=== PATIENT | female | born 1975 | race Caucasian/White ===

== ENCOUNTER 2023-05-11 02:30 | Inpatient (IN) | payer MEDICAID, OTHER ==
[~2023-05-11] VITALS: Ht 129.5 cm; Wt 47.6 kg
[~2023-05-11 02:30] MED LIST: ASPI-1205 PO; BACL10TA4 GT; BISA-218 RC; CEPH250C16 PO; CLIN300C2 PO; DEC4 PO; DOCU-299 GT; FAMO-90 GT; MIRABULK GT; MONT-72 GT; PRON INH; VIT PO
--- NOTE | 2023-05-11 02:38 | NUR ---
PT. CANDELARIO BALDWIN; TAKEN TO BED 01
[2023-05-11 02:48] VITALS: BP 137/79; PULSE 106; RESP 15; TEMP 97.5; O2SAT 95
--- NOTE | 2023-05-11 04:00 | NUR ---
PATIENT PRESENTS BY ALS FROM [facility] TO ED WITH N/V/D PER EMS. 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 SKIN IS PINK/WARM/DRY; AAOX0, HR TACHY AT 106; NO FEVER AT THIS TIME; PT HAS G TUBE. BEDRAILS UP X2; BED DOWN. ER MD AWARE OF PT STATUS.
[2023-05-11] MEDS ORDERED: NACL 0.9% 1,000 ML IV ONE ×2 (04:10→06:05)
[2023-05-11] MEDS ORDERED: ONDANSETRON 4 MG/2 ML VIAL IVP ONE (04:10)
[2023-05-11] MEDS ORDERED: fentaNYL citrate 0.05 MG/ML VIAL IVP ONE (04:10)
--- NOTE | 2023-05-11 04:14 | NUR ---
PT TAKEN TO CT
--- NOTE | 2023-05-11 05:00 | NUR ---
ATTEMPTED TO CATH PT, CANNOT CATHETERIZE PT DUE TO SEVERE CONTRACTURES.
--- NOTE | 2023-05-11 05:40 | NUR ---
RN AND EMT ASSISTED TO ROTATE PT FOR IN AND OUT CATH ACCESS. URINE COLLECTED ON PT.
[2023-05-11 05:45] LABS: BASOPHILS % (AUTO) 0.2 % (0.0-2.0); HEMATOCRIT 43.6 % (36-48); HEMOGLOBIN 14.8 g/dL (12.0-16.0); LYMPHOCYTES # (AUTO) 0.9 K/uL (2.5-16.5); LYMPHOCYTES % (AUTO) 5.9 % (20.5-51.1); MEAN CORPUSCULAR HEMOGLOBIN 29 pg (27-31); MEAN CORPUSCULAR HGB CONC 34 g/dL (33-37); MEAN CORPUSCULAR VOLUME 84.6 fL (80-94); MONOCYTES # (AUTO) 0.5 K/uL (0.8-1.0); MONOCYTES % (AUTO) 3.6 % (1.7-9.3); NEUTROPHILS # (AUTO) 13.7 K/uL (1.8-7.7); NEUTROPHILS % (AUTO) 90.3 % (42.2-75.2); PLATELET COUNT (AUTO) 302 K/uL (140-450); RED BLOOD CELL COUNT(AUTO) 5.15 MIL/uL (4.20-5.40); WHITE BLOOD COUNT (AUTO) 15.1 K/uL (4.8-10.8)
[2023-05-11 06:02] LABS: ANION GAP 11.5 (8-16); ASPARTATE AMINOTRANSFERASE 32 U/L (15-37); CARBON DIOXIDE 32.8 mmol/L (21-32); CHLORIDE 100 mmol/L (98-107); CREATININE 0.6 mg/dL (0.6-1.3); GFR ARICAN-AMERICAN 138 mL/min (>90); GLUCOSE 157 mg/dL (74-106); POTASSIUM 3.3 mmol/L (3.5-5.1); SODIUM SERUM 141 mmol/L (136-145); TOTAL BILIRUBIN 0.6 mg/dL (0.0-1.0); UREA NITROGEN, BLOOD 14 mg/dL (7-18)
[2023-05-11] MEDS ORDERED: PIPERACILLIN/TAZOBACTAM 3.375 GM in DEXTROSE 5% 50 ML IV ONE (06:05)
[2023-05-11] MEDS ORDERED: PIPERACILLIN/TAZOBACTAM 3.375 GM VIAL IV ONE (06:14)
[2023-05-11 06:21] LABS: APPEARANCE,URINE CLEAR (CLEAR); BILIRUBIN,URINE NEGATIVE (NEGATIVE); BLOOD, URINE TRACE-I (NEGATIVE); COLOR,URINE YELLOW (YELLOW); LEUKOCYTE ESTERASE ,URINE 1+ (NEGATIVE); NITRITE, URINE NEGATIVE (NEGATIVE); UGLUCOSE NEGATIVE (NEGATIVE)
--- NOTE | 2023-05-11 06:37 | NUR ---
Pt report given to catherine Griffiths. Transfer of care at this time.
[2023-05-11 06:42] LABS: RBC,URINE 0-5 /HPF (0-5)
--- NOTE | 2023-05-11 07:30 | NUR ---
PT IN VIEW OF NURSES STATION DUE TO PT BEING CONTRACTED AND NOT BEING ABLE TO PUSH CALL LIGHT.
--- NOTE | 2023-05-11 08:09 | NUR ---
RECEVIED REPORT FROM MINESH GIRON, PATIENT PRESENTS BY ALS FROM [facility] ED WITH N/V/D PER EMS. 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 SKIN IS PINK/WARM/DRY; AAOX0, HR TACHY AT 106; NO FEVER AT THIS TIME; PT HAS G TUBE. BEDRAILS UP X2; BED DOWN. ER MD AWARE OF PT STATUS. PMHX CEREBRAL PALSY INTELLECUAL DISBILITY NKA
--- NOTE | 2023-05-11 08:10 | NUR ---
PT HAS BEEN REPOSITIONED. SUCTIONED. PTS EYE IS RED ON LEFT SIDE. MD MADE AWARE. STATED PT IS FINE. MD STATED ITS SUBCONJUCTIVE CORNEA HEMMORAGE.
--- NOTE | 2023-05-11 09:00 | NUR ---
PATIENT HAS BEEN SCREENED AND CATEGORIZED MODERATE NUTRITION RISK. PATIENT WILL BE SEEN WITHIN 3-5 DAYS OF ADMISSION. 05/14/23-05/16/23 REVIEWED BY DERIAN PIERSON RD
[2023-05-11 09:17] VITALS: O2SAT 96
--- NOTE | 2023-05-11 09:20 | NUR ---
Patient will be admitted to care of DR. ALEXANDRA. Admited to TELE INPATIENT. Will go to room 108B. Belongings list completed. Report to NADIAJESUS EDGE.
--- NOTE | 2023-05-11 09:30 | NUR ---
RECEIVED PATIENT FROM ED ON [facility]. PATIENT LIMBS FLEXED ND KNECK HYPER EXTENDED. PATIENT HAD DIFFICULTY COUGHING UP SPUTUM, PROVIDED SUCTION. PATIENT O2 SAT 98. PAIENT CHANGED AND CURRENTLY SLEEPING, NORMAL RISE AND FALL OF CHEST EQUAL. VITAL SIGNS ARE STABLE.
--- NOTE | 2023-05-11 09:31 | NUR ---
The patient's care was reviewed and supervised by Federica Grande RN.
[2023-05-11] MEDS ORDERED: POTASSIUM CHLORIDE 40 MEQ, LIDOCAINE 1% 25 MG in NACL 0.9% 250 ML IV SCH (10:00)
[2023-05-11] MEDS ORDERED: AZITHROMYCIN 500 MG in DEXTROSE 5% 250 ML IV SCH (10:00)
[2023-05-11 11:18] VITALS: PULSE 110; RESP 18; O2SAT 98
[2023-05-11 12:00] VITALS: BP 140/91; PULSE 102; PULSE 97; RESP 19; TEMP 96.1; O2SAT 96
--- NOTE | 2023-05-11 13:58 | NUR ---
FNS CONSULT RECEIVED FOR PATIENT FOR TUBE FEEDING ON 05/11/23. RD WILL GIVE RECOMMENDATION TO RN TODAY 05/11/23. RD WILL FOLLOW UP FOR INITIAL ASSESSMENT FOR HIGH RISK PATIENT TOMORROW 05/12/23. BREANNA DICKSON RD
--- NOTE | 2023-05-11 13:59 | NUR ---
DC [age] YRS OLD FEMALE PATIENT WAS ADMITTED FROM HOME WITH A DX OF UTI, SEPSIS. PATIENT HAS A HX OF CEREBRAL PALSY, NON-VERBAL AND COLON CANCER. CT ABD SHOWED NO ACUTE ABNORMALITY IDENTIFIED. CXR SHOWED INCREASED OPACITY RIGHT HEMATHORAX MAY BE RELATED TO UNDERLYING INFILTRATION CONSOLIDATION. ADMINISTERED IVF, IV ABX FLAGYL ,AZITHROMYCIN AND ROCEPHIN AND ZOSYN. BLOOD AND URINE CULTURE PENDING. CONSULTED WITH ID. DC PLAN TO RETURN TO [facility] WHEN STABLE. CM TO FOLLOW
--- NOTE | 2023-05-11 14:10 | NUR ---
RD GAVE TUBE FEEDING RECOMMENDATION TO RN FOR VITAL AF 1.2 START AT 20ML/HR AND INCREASE 20ML Q4H TO GOAL RATE OF 40ML/HR WITH FREE WATER FLUSH 100 ML Q4H. THIS WILL PROVIDE 1,152 CALORIES AND 72 GRAMS OF PROTEIN, MEETING AT LEAST 75% OF PATIENT'S ESTIMATED NUTRITIONAL NEEDS. RD WILL FOLLOW UP ON PATIENT TOMORROW 05/12/23. BREANNA DICKSON RD
[2023-05-11] MEDS: metroNIDAZOLE 500 MG/NS PREMIX 100 ML IV SCH ×2 (14:14→20:37)
[2023-05-11 16:00] VITALS: BP 145/85; PULSE 96; PULSE 97; RESP 19; TEMP 97.6; O2SAT 96
[2023-05-11] MEDS: LEVOFLOXACIN 750 MG/D5W PREMIX 150 ML IV SCH (18:45)
--- NOTE | 2023-05-11 19:40 | NUR ---
RECEIVED ENDORSEMENT FROM DAY SHIFT NURSE. PT IS BED BOUND WITH HYPER EXTENSION OF NECK. PT IS ON GT TUBE FEEDING, WAITING FOR GT MACHINE AT THIS TIME. TF = VITAL AF 1.2 SHADY WITH GOAL OF 40ML/HR, WATER FLUSH = 100ML Q 4 HR. PT IS NON VERBAL AND IS ON DIAPER. IV SITE IS RIGHT NECK AND RIGHT UPPER ARM 20G, INTACT. PARENTS ARE ON BED SITE AT THIS TIME.
--- NOTE | 2023-05-11 19:55 | NUR ---
ORAL SUCTION DONE.
[2023-05-11 20:00] VITALS: BP 142/87; PULSE 125; RESP 22; RESP 23; TEMP 98; O2SAT 94; O2SAT 96
--- NOTE | 2023-05-11 21:30 | NUR ---
GT IS WITH SCREW STYLE FROM PT FACILITY, NO SYRINGE AVAILABLE WITH SCREW STYLE. UNABLE TO CHECKED FOR RESIDUAL. STARTS FEEDING. TUBE FEEDING IS VITAL AF 1.2 SHADY. STARTS FEEDING WITH 10ML/HR. PT IS ON STABLE CONDITION.
[2023-05-12] VITALS: BP 140/87; PULSE 101; PULSE 107; RESP 22; TEMP 97.5; O2SAT 96
[2023-05-12] MEDS ORDERED: ONDANSETRON 4 MG/2 ML VIAL IVP PRN (00:30)
[2023-05-12] MEDS ORDERED: ACETAMINOPHEN 650 MG SUPP RC PRN (00:30)
--- NOTE | 2023-05-12 01:00 | NUR ---
PT IS ON STABLE CONDITION WITH INTERMITTENT SLEEPS. INCREASE FEEDING TO 20ML/HR.
--- NOTE | 2023-05-12 03:00 | NUR ---
PT IS ON STABLE CONDITION, AWAKE AND ALERT. INCREASE TUBE FEEDING TO 30ML/HR. NO SOB OR DISTRESS.
[2023-05-12 04:00] VITALS: BP 137/91; PULSE 109; RESP 19; TEMP 97.5; O2SAT 96
[2023-05-12] MEDS: metroNIDAZOLE 500 MG/NS PREMIX 100 ML IV SCH ×3 (05:00→21:29)
[2023-05-12 06:12] LABS: HEMATOCRIT 40.1 % (36-48); HEMOGLOBIN 13.5 g/dL (12.0-16.0); LYMPHOCYTES # (AUTO) 1.1 K/uL (2.5-16.5); LYMPHOCYTES % (AUTO) 5.6 % (20.5-51.1); MEAN CORPUSCULAR HEMOGLOBIN 29 pg (27-31); MEAN CORPUSCULAR HGB CONC 34 g/dL (33-37); MEAN CORPUSCULAR VOLUME 85.3 fL (80-94); MONOCYTES # (AUTO) 1.1 K/uL (0.8-1.0); MONOCYTES % (AUTO) 5.8 % (1.7-9.3); NEUTROPHILS # (AUTO) 17.3 K/uL (1.8-7.7); NEUTROPHILS % (AUTO) 88.6 % (42.2-75.2); PLATELET COUNT (AUTO) 271 K/uL (140-450); RED CELL DISTRIBUTION WIDTH 14.2 % (11.6-13.7); WHITE BLOOD COUNT (AUTO) 19.5 K/uL (4.8-10.8)
[2023-05-12 06:20] LABS: ALBUMIN 3.6 g/dL (3.4-5.0); ANION GAP 12.9 (8-16); CREATININE 0.7 mg/dL (0.6-1.3); TOTAL BILIRUBIN 0.4 mg/dL (0.0-1.0)
[2023-05-12 06:23] LABS: POTASSIUM 2.9 mmol/L (3.5-5.1)
--- NOTE | 2023-05-12 06:27 | NUR ---
RECEIVED LAB RESULT FROM LABORATORY. PT POTASSIUM LEVEL = 2.9.
--- NOTE | 2023-05-12 06:30 | NUR ---
REPORTED TO DR. WAYNE MD ORDER POTASSIUM RIDER WITH LIDOCAINE 40MEQ X 1. ORDER CARRY OUT.
[2023-05-12] MEDS ORDERED: POTASSIUM CHLORIDE 10 MEQ TABER PO ONE (07:05)
--- NOTE | 2023-05-12 07:20 | NUR ---
PT IS ON STABLE CONDITION, ENDORSED TO DAY SHIFT NURSE. SAFETY MEASURES ARE IN PLACE.
--- NOTE | 2023-05-12 07:30 | NUR ---
RECEIVED PATIENT FROM PM NURSE FOR CONTINUATION OF CARE. PATIENT SEEN AWAKE, STILL WITH ARMS CONTRACTED AND NECK EXTENDED. ALFREDO BROTHER CALLED FOR UPDATE.
[2023-05-12 08:00] VITALS: BP 134/86; PULSE 108; PULSE 118; RESP 18; TEMP 97.8; O2SAT 94
[2023-05-12] MEDS ORDERED: POTASSIUM CHLORIDE 40 MEQ, LIDOCAINE 1% 25 MG in NACL 0.9% 250 ML IV SCH (08:00)
--- NOTE | 2023-05-12 09:25 | NUR ---
PT. WITH LOW MARILYNN SCALE AT HIGH RISK, CONTINUE TO FOLLOW PRESSURE INJURY PREVENTION INTERVENTIONS. -POSITIONING: TURN AND REPOSITION PATIENT Q 2H OR SOONER USE PILLOWS TO KEEP BONY PROMINENCES FROM DIRECT CONTACT WITH SURFACES USE REPOSITIONING WEDGES TO PROVIDE 30-DEGREE ANGLE FOR SIDE LYING POSITIONS OFFLOADING OR FOAM DRESSING TO ALL TUBING TO PREVENT MEDICAL DEVICES RELATED PRESSURE INJURY -RE-EVALUATING AND MANAGING INCONTINENCE MONITOR SKIN CONDITION DURING POSITION CHANGE DO NOT MASSAGE REDNESS, BONY PROMINENCES FREQUENT ALEXANDER-CARE AND PROVIDE BARRIER CREAMS PRN IF SOILING MOISTURE CONTROL BY OFFER BED LOPEZ/URINAL /ABSORBENT PAD TO WICK AND HOLD MOISTURE KEEP SKIN DRY AND PROTECT FROM FRICTION -MANAGE FRICTION/SHEAR/MOBILITY KEEP HOB AT THE LOWEST LEVEL OF ELEVATION NO MORE THAN 30 DEGREE UNLESS OTHERWISE CONTRAINDICATED USE LIFT SHEET OR TRANSFER DEVICE TO MOVE PATIENT AND PREVENT LATERAL SHEER. PROTECT HEELS, ELBOWS BONY PROMINENCES WITH SKIN BERRIES OR FOAM DRESSING IF EXPOSED TO FRICTION OFFLOAD BILATERAL HEELS BY PLACING PILLOWS UNDER CALVES AT ALL TIMES, UNLESS OTHERWISE CONTRAINDICATED -PRESSURE REDISTRIBUTION SURFACE THERAPY TAB ISOFLEX MATTRESS -NUTRITION: PLEASE FOLLOW RD RECOMMENDATIONS AND OFFER NUTRITION SUPPLEMENTS IF ORDERED. PLEASE CONTACT WOUND CARE NURSE FOR ANY QUESTION AND CHANGE OF WOUND CONDITION.
[2023-05-12 12:00] VITALS: BP 140/81; PULSE 108; PULSE 127; RESP 18; TEMP 98.4; O2SAT 94
--- NOTE | 2023-05-12 13:08 | NUR ---
05/12/23 RD INITIAL ASSESSMENT COMPLETED PLEASE REFER TO NUTRITION ASSESSMENT UNDER CARE ACTIVITY FOR ESTIMATED NUTRITIONAL NEEDS. 1. CONTINUE VITAL AF @40ML/HR WITH FWF 100Q4H TOLERATED. THIS WILL PROVIDE 1,152 CALORIES AND 72 GRAMS OR PROTEIN, MEETING AT LEAST 75% OF PATIENTS ESTIMATED NEEDS. 2. RD WILL CONTINUE TO MONITOR TUBE FEEDING TOLERANCE, GI ISSUES, SKIN INTEGRITY, WEIGHT, AND NUTRITION RELATED LAB VALUES. 3. RD TO FOLLOW-UP 2-3 DAYS, HIGH RISK BREANNA DICKSON RD
[2023-05-12 16:00] VITALS: BP 137/79; PULSE 126; RESP 18; TEMP 99.1; O2SAT 96
--- NOTE | 2023-05-12 17:30 | NUR ---
PATIENT FAMILY VISITED. THEY INSISTED ON TURNING PATIENT. FAMILY WAS TOLD PATIENT ALREADY TURNED, HOWEVER FAMILY TURNED PATIENT THEMSELVES. JUGULAR IV DISLODGED. EXPELLER OPERATOR REINSERTED PEDAL IV
[2023-05-12] MEDS: LEVOFLOXACIN 750 MG/D5W PREMIX 150 ML IV SCH (19:03)
--- NOTE | 2023-05-12 19:30 | NUR ---
ENDORSED PATIENT TO PM NURSE FOR CONTINUATION OF CARE
--- NOTE | 2023-05-12 19:31 | NUR ---
RECEIVED REPORT FROM DAY SHIFT RN FOR CONTINUITY OF CARE. PT IS AWAKE RESTING IN BED. NOT IN ANY DISTRESS. PT IS CONTRACTED WITH HYPEREXTENSION OF HEAD AND NECK. BED AT THE LOWEST POSITION HEAD OF THE BED RAISED. WILL CONTINUE TO MONITOR THE PT.
[2023-05-12 20:00] VITALS: BP 148/84; PULSE 134; PULSE 68; RESP 16; RESP 18; TEMP 98.2; O2SAT 95
--- NOTE | 2023-05-12 21:30 | NUR ---
SCHEDULE MEDICATION GIVEN. NO ADVERSE REACTION NOTED. WILL CONTINUE TO MONITOR THE PT.
[2023-05-13] VITALS (10 sets, daily range): BP systolic 131–157; BP diastolic 79–97; PULSE 68–119; RESP 16–20; TEMP 96.7–98.6; O2SAT 94–99
--- NOTE | 2023-05-13 03:20 | NUR ---
OBSERVED PT. PT IS AWAKE AND NOT IN ANY DISTRESS. BREATHING EVEN AND UNLABORED. PT WAS DROOLING AND WAS SUCTION. BED AT THE LOWEST POSITION. HEAD OF THE BED RAISED. WILL CONTINUE TO MONITOR THE PT.
[2023-05-13] MEDS: metroNIDAZOLE 500 MG/NS PREMIX 100 ML IV SCH ×3 (04:26→20:32)
[2023-05-13 06:30] LABS: BASOPHILS % (AUTO) 0.2 % (0.0-2.0); EOSINOPHILS # (AUTO) 0.1 K/uL (0-0.4); EOSINOPHILS % (AUTO) 0.5 % (0.0-4.0); HEMATOCRIT 37.9 % (36-48); HEMOGLOBIN 12.8 g/dL (12.0-16.0); LYMPHOCYTES # (AUTO) 2.3 K/uL (2.5-16.5); LYMPHOCYTES % (AUTO) 20.1 % (20.5-51.1); MEAN CORPUSCULAR HEMOGLOBIN 29 pg (27-31); MEAN CORPUSCULAR HGB CONC 34 g/dL (33-37); MEAN CORPUSCULAR VOLUME 85.6 fL (80-94); MONOCYTES # (AUTO) 1.2 K/uL (0.8-1.0); MONOCYTES % (AUTO) 10.6 % (1.7-9.3); NEUTROPHILS # (AUTO) 7.8 K/uL (1.8-7.7); NEUTROPHILS % (AUTO) 68.6 % (42.2-75.2); PLATELET COUNT (AUTO) 219 K/uL (140-450); RED BLOOD CELL COUNT(AUTO) 4.43 MIL/uL (4.20-5.40); RED CELL DISTRIBUTION WIDTH 14.4 % (11.6-13.7); WHITE BLOOD COUNT (AUTO) 11.4 K/uL (4.8-10.8)
--- NOTE | 2023-05-13 07:19 | NUR ---
ENDORSED PT TO DAY SHIFT NURSE FOR CONTINUITY OF CARE. PT IS STABLE.
--- NOTE | 2023-05-13 07:37 | NUR ---
RECEIVED PATIENT ON BED REST , SLEEPING , NO SOB , STILL UNDER OBSERVE .
[2023-05-13 07:46] LABS: ALBUMIN 3.2 g/dL (3.4-5.0); ANION GAP 12.8 (8-16); CARBON DIOXIDE 27.3 mmol/L (21-32); CREATININE 0.6 mg/dL (0.6-1.3); POTASSIUM 3.1 mmol/L (3.5-5.1); TOTAL BILIRUBIN 0.3 mg/dL (0.0-1.0)
[2023-05-13] MEDS ORDERED: POTASSIUM CHLORIDE 20% 40 MEQ/15 ML UDC GT SCH (09:30)
--- NOTE | 2023-05-13 11:31 | NUR ---
PATIENT ON BED REST , A/OX1 , ON FEEDING TUB 40CC/H WITH WATER FLUSH 100Q4 HORS NO RESIDUAL , TOLERAT FEEDING TUB , CONTRACTED LOWER AND UPPER EXTREMITY , SKIN SEE SKIN ASSESSMENT ON ORAL SUCTION , POSSIBLE DC ON MONDAY , PATIENT STILL UNDER OBSERVE
[2023-05-13] MEDS: LEVOFLOXACIN 750 MG/D5W PREMIX 150 ML IV SCH (17:05)
--- NOTE | 2023-05-13 19:14 | NUR ---
shift report given singh alexander , all his question answer ,
--- NOTE | 2023-05-13 19:15 | NUR ---
RECEIVED PT FROM MORNING SHIFT NURSE. PT IS AOX1 AND BEDBOUND. PT IS ON ROOM AIR AND HAS G-TUBE RUNNING WITH VITAL AF 1.2 40ML/HR WITH WATER FLUSH OF 100ML EVERY 4 HRS. PT HAS IV ON RIGHT THUMB GAUGE 24, SL. PT HAS CONTRACTED NECK, ARMS AND LEGS. PT SKIN IS INTACT. NO S/S OF RESPIRATORY DISTRESS NOTED. ALL SAFETY MEASURES IMPLEMENTED. BED IN LOW POSITION, BED WHEELS ON LOCK AND CALL LIGHT WITHIN REACH.
--- NOTE | 2023-05-13 20:32 | NUR ---
SCHEDULED AND PRESCRIBED MEDICATION WAS GIVEN TO PT PER MD ORDER. NO S/S OF RESPIRATORY DISTRESS NOTED. ALL SAFETY MEASURES IMPLEMENTED. BED IN LOW POSITION, BED WHEELS ON LOCK AND CALL LIGHT WITHIN REACH.
--- NOTE | 2023-05-13 22:00 | NUR ---
HANGED NEW G-TUBE FEEDING TO PT, VITAL A.F 1.2 AT 400ML/HR WITH WATER FLUSH OF 100ML EVERY 4 HRS. ALL SAFETY MEASURES IMPLEMENTED. BED IN LOW POSITION, BED WHEELS ON LOCK AND CALL LIGHT WITHIN REACH.
[2023-05-14] VITALS (7 sets, daily range): BP systolic 132–145; BP diastolic 75–84; PULSE 100–118; RESP 16–20; TEMP 97.6–98.4; O2SAT 95–99
--- NOTE | 2023-05-14 | NUR ---
PT IS ON SLEEP. CHEST RISE AND FALL SYMMETRICALLY NOTED. RESPIRATION IS EVEN AND UNLABORED. ALL SAFETY MEASURES IMPLEMENTED. BED IN LOW POSITION, BED WHEELS ON LOCK AND CALL LIGHT WITHIN REACH.
--- NOTE | 2023-05-14 02:09 | NUR ---
CHECKED THE PT, STILL ON SLEEP. CHEST RISE AND FALL SYMMETRICALLY NOTED. RESPIRATION IS EVEN AND UNLABORED. ALL SAFETY MEASURES IMPLEMENTED. BED IN LOW POSITION, BED WHEELS ON LOCK AND CALL LIGHT WITHIN REACH.
[2023-05-14] MEDS: metroNIDAZOLE 500 MG/NS PREMIX 100 ML IV SCH (04:47)
--- NOTE | 2023-05-14 04:47 | NUR ---
SCHEDULED AND PRESCRIBED MEDICATION WAS GVEN TO PT PER MD ORDER. ALL SAFETY MEASURES IMPLEMENTED. BED IN LOW POSITION, BED WHEELS ON LOCK AND CALL LIGHT WITHIN REACH.
--- NOTE | 2023-05-14 05:30 | NUR ---
IV IS INFILTRATED. INSERTED NEW IV ON LEFT FOREARM GAUGE 24. IV IS NOW INTACT, PATENT AND FLUSHING WELL. ALL SAFETY MEASURES IMPLEMENTED. BED IN LOW POSITION, BED WHEELS ON LOCK AND CALL LIGHT WITHIN REACH.
[2023-05-14 06:40] LABS: BASOPHILS % (AUTO) 0.4 % (0.0-2.0); EOSINOPHILS # (AUTO) 0.4 K/uL (0-0.4); EOSINOPHILS % (AUTO) 4.9 % (0.0-4.0); HEMATOCRIT 37.4 % (36-48); HEMOGLOBIN 12.7 g/dL (12.0-16.0); LYMPHOCYTES # (AUTO) 2.6 K/uL (2.5-16.5); LYMPHOCYTES % (AUTO) 29.9 % (20.5-51.1); MEAN CORPUSCULAR HEMOGLOBIN 29 pg (27-31); MEAN CORPUSCULAR HGB CONC 34 g/dL (33-37); MEAN CORPUSCULAR VOLUME 85.8 fL (80-94); MONOCYTES # (AUTO) 0.8 K/uL (0.8-1.0); MONOCYTES % (AUTO) 9.6 % (1.7-9.3); NEUTROPHILS # (AUTO) 4.7 K/uL (1.8-7.7); NEUTROPHILS % (AUTO) 55.2 % (42.2-75.2); PLATELET COUNT (AUTO) 238 K/uL (140-450); RED BLOOD CELL COUNT(AUTO) 4.36 MIL/uL (4.20-5.40); RED CELL DISTRIBUTION WIDTH 14.5 % (11.6-13.7); WHITE BLOOD COUNT (AUTO) 8.6 K/uL (4.8-10.8)
[2023-05-14 07:11] LABS: ALBUMIN 3.1 g/dL (3.4-5.0); ANION GAP 12.1 (8-16); CARBON DIOXIDE 25.2 mmol/L (21-32); CREATININE 0.5 mg/dL (0.6-1.3); POTASSIUM 3.3 mmol/L (3.5-5.1); TOTAL BILIRUBIN 0.3 mg/dL (0.0-1.0)
--- NOTE | 2023-05-14 07:16 | NUR ---
PT IS STABLE. ENDORSED PT TO MORNING SHIFT NURSE FOR CONTINUITY OF CARE.
--- NOTE | 2023-05-14 07:56 | NUR ---
RECEIVED REPORT FROM NEEDLE POLISHER NURSE FOR CONTINUITY OF CARE. PT IS AWAKE, ALERT AND ORIENTED X1, BEDBOUND. CURRENTLY ON ROOM AIR SATING AT 95%. FLACC SCORE 0. VITAL SIGNS TAKEN, ALL WNL. WHITE BOARD UPDATED, SAFETY MEASURES IN PLACE. WILL MAKE FREQUENT ROUNDS AND REPOSITION EVERY 2 HOURS.
[2023-05-14] MEDS ORDERED: POTASSIUM CHLORIDE 60 MEQ, LIDOCAINE 1% 25 MG in NACL 0.9% 500 ML IV SCH (10:00)
--- NOTE | 2023-05-14 10:00 | NUR ---
PATIENT POTASSIUM LEVEL OF 3.3. INFORMED DR MENDOZA WHO PLACED AN ORDER FOR K RIDER 60 MEQ W/ LIDOCAINE. MEDICATION WAS ADMINISTERED BY RN: JIMMY. WILL CONTINUE TO MONITOR THE PT.
--- NOTE | 2023-05-14 11:28 | NUR ---
CLEANED AND CHANGED PATIENT WITH INSTRUCTOR FLYING: GWENDOLYN. 1 BM NOTED, NO FOUL ORDER BUT LIQUID IN FORM. REPOSITIONED THE PATIENT. WILL CONTINUE TO MONITOR.
--- NOTE | 2023-05-14 14:38 | NUR ---
PT SLEEPING COMFORTABLY. CHEST RISE AND FALL NOTED, NASAL FLARING PRESENT. O2 SATURATION AT 97%, HEART RATE 84. WILL CONTINUE MONITORING.
[2023-05-14] MEDS: LEVOFLOXACIN 750 MG/D5W PREMIX 150 ML IV SCH (17:52)
--- NOTE | 2023-05-14 18:03 | NUR ---
SCHEDULED LEVAQUIN ADMINISTERED WITH NO COMPLICATIONS, IV STILL INTACT AND PATENT. FAMILY AT BEDSIDE AT THIS TIME. CLEANED, CHANGED, AND REPOSITIONED PT AT FAMILY'S REQUEST. C-DIFF CULTURE CAME BACK NEGATIVE. NO ACUTE EVENTS DURING MY SHIFT, WILL ENDORSE TO PRESSER AND SHAPER KNITTED GOODS NURSE FOR CONTINUITY OF CARE.
--- NOTE | 2023-05-14 19:23 | NUR ---
ENDORSED TO BUSINESS SYSTEMS CONSULTANT NURSE FOR CONTINUITY OF CARE. PT IS STABLE AT THIS TIME.
--- NOTE | 2023-05-14 19:24 | NUR ---
RECEIVED PT FROM MORNING SHIFT NURSE. PT IS AOX1 AND BEDBOUND. PT IS ON ROOM AIR AND HAS G-TUBE RUNNING WITH VITAL AF 1.2 40ML/HR WITH WATER FLUSH OF 100ML EVERY 4 HRS. PT HAS IV ON RIGHT AC GAUGE 24, SL. PT HAS CONTRACTED NECK, ARMS AND LEGS. PT SKIN IS INTACT. NO S/S OF RESPIRATORY DISTRESS NOTED. ALL SAFETY MEASURES IMPLEMENTED. BED IN LOW POSITION, BED WHEELS ON LOCK AND CALL LIGHT WITHIN REACH.
--- NOTE | 2023-05-14 22:00 | NUR ---
HANGED NEW G-TUBE FEEDING, VITAL AF 1.2 40ML/HR WITH WATER FLUSH OF 100ML EVERY 4 HRS. NO S/S OF RESPIRATORY DISTRESS NOTED. ALL SAFETY MEASURES IMPLEMENTED. BED IN LOW POSITION, BED WHEELS ON LOCK AND CALL LIGHT WITHIN REACH.
[2023-05-15] VITALS: BP 133/77; PULSE 115; PULSE 123; RESP 20; TEMP 97.4; O2SAT 98
--- NOTE | 2023-05-15 04:00 | NUR ---
MORNING CARE WAS DONE TO PT. CHANGED DIAPER, GOWN, BLANKET AND LINENS. NO S/S OF RESPIRATORY DISTRESS. ALL SAFETY MEASURES IMPLEMENTED. BED IN LOW POSITION, BED WHEELS ON LOCK AND CALL LIGHT WITHIN REACH.
[2023-05-15 04:07] VITALS: BP 122/72; PULSE 106; RESP 20; TEMP 98.2; O2SAT 98
[2023-05-15 06:20] LABS: BASOPHILS % (AUTO) 0.5 % (0.0-2.0); EOSINOPHILS # (AUTO) 0.6 K/uL (0-0.4); EOSINOPHILS % (AUTO) 5.7 % (0.0-4.0); HEMATOCRIT 42.3 % (36-48); HEMOGLOBIN 14.4 g/dL (12.0-16.0); LYMPHOCYTES # (AUTO) 3.2 K/uL (2.5-16.5); LYMPHOCYTES % (AUTO) 32.2 % (20.5-51.1); MEAN CORPUSCULAR HEMOGLOBIN 30 pg (27-31); MEAN CORPUSCULAR HGB CONC 34 g/dL (33-37); MEAN CORPUSCULAR VOLUME 87.4 fL (80-94); MONOCYTES # (AUTO) 0.8 K/uL (0.8-1.0); MONOCYTES % (AUTO) 7.8 % (1.7-9.3); NEUTROPHILS # (AUTO) 5.4 K/uL (1.8-7.7); NEUTROPHILS % (AUTO) 53.8 % (42.2-75.2); PLATELET COUNT (AUTO) 133 K/uL (140-450); RED BLOOD CELL COUNT(AUTO) 4.84 MIL/uL (4.20-5.40); RED CELL DISTRIBUTION WIDTH 14.3 % (11.6-13.7)
[2023-05-15 06:58] LABS: ALBUMIN 3.1 g/dL (3.4-5.0); ANION GAP 11.6 (8-16); CARBON DIOXIDE 23.7 mmol/L (21-32); CREATININE 0.4 mg/dL (0.6-1.3); POTASSIUM 4.3 mmol/L (3.5-5.1); TOTAL BILIRUBIN 0.4 mg/dL (0.0-1.0)
--- NOTE | 2023-05-15 07:27 | NUR ---
PT IS STABLE. ENDORSED PT TO MORNING SHIFT NURSE FOR CONTINUITY OF CARE.
--- NOTE | 2023-05-15 07:49 | NUR ---
RECEIVED PATIENT FROM PM NURSE FOR CONTINUATION OF CARE. PATIENT SEEN ASLEEP ON BED WITH NORMAL RISE AND FALL OF CHEST.
[2023-05-15 08:00] VITALS: BP 132/74; PULSE 105; PULSE 111; PULSE 116; PULSE 86; RESP 19; RESP 20; TEMP 97; O2SAT 95; O2SAT 98
[2023-05-15] MEDS ORDERED: LEVO250T89 PO (11:53)
[2023-05-15 12:00] VITALS: BP 118/77; PULSE 110; PULSE 118; RESP 20; TEMP 97.6; O2SAT 98
--- NOTE | 2023-05-15 14:32 | NUR ---
05/15/23 RD FOLLOW UP COMPLETED PLEASE REFER TO NUTRITION ASSESSMENT UNDER CARE ACTIVITY FOR ESTIMATED NUTRITIONAL NEEDS. 1. CONTINUE VITAL AF @40ML/HR WITH FWF 100Q4H TOLERATED. THIS WILL PROVIDE 1,152 CALORIES AND 72 GRAMS OF PROTEIN, MEETING AT LEAST 75% OF PATIENTS ESTIMATED NEEDS. 2. RD WILL CONTINUE TO MONITOR TUBE FEEDING TOLERANCE, GI ISSUES, SKIN INTEGRITY, WEIGHT, AND NUTRITION RELATED LAB VALUES. 3. RD TO FOLLOW-UP 2-3 DAYS, HIGH RISK. REVIEWED BY DERIAN PIERSON RD
[2023-05-15 16:39] VITALS: BP 118/77; PULSE 110; RESP 20; TEMP 97.6
== END 2023-05-15 18:30 | DRG 720 ==
LOC: MED 02:30 → MTU 07:43
PROVIDERS: ADMIT Student in an Organized Health Care Education/Training Program; ATTEND Student in an Organized Health Care Education/Training Program
DX: A41.51 Sepsis due to Escherichia coli [E. coli] (principal); J69.0 Pneumonitis due to inhalation of food and vomit; G80.9 Cerebral palsy, unspecified; N39.0 Urinary tract infection, site not specified; R11.2 Nausea with vomiting, unspecified; R19.7 Diarrhea, unspecified; Z93.1 Gastrostomy status; Z79.899 Other long term (current) drug therapy; Z85.038 Personal history of other malignant neoplasm of large intestine
CPT/HCPCS: 36415; 71045; 80053; 81001; 82550; 83605; 84484; 85025; 85610; 85730; 87040; 87045; 87070; 87081; 87086; 93005; 96365; 96375; 99285; J0456; J0696; J1956; J2001; J2405; J2543; J3010; J3480; J3490; J7030; J7060; Q0092

== ENCOUNTER 2023-09-29 10:15 | Emergency (ER) | payer MEDICAID, OTHER ==
[~2023-09-29] VITALS: Ht 160 cm; Wt 59.0 kg
[~2023-09-29 10:15] MED LIST changes: -CEPH250C16 PO; -CLIN300C2 PO; -DEC4 PO; +LEVO250T89 PO
[2023-09-29 10:24] VITALS: BP 128/80; PULSE 91; RESP 18; TEMP 97.2; O2SAT 98
[2023-09-29 17:27] VITALS: TEMP 97
[2023-09-29 21:20] VITALS: O2SAT 99
[2023-09-29 23:00] VITALS: BP 106/60; PULSE 65; RESP 17
[2023-09-29 23:25] VITALS: O2SAT 99
[2023-09-30 01:10] VITALS: O2SAT 99
[2023-09-30 03:02] VITALS: O2SAT 99
[2023-09-30 05:10] VITALS: O2SAT 99
[2023-09-30] MEDS ORDERED: KETOROLAC 60 MG/2 ML VIAL IM ONE (05:30)
== END 2023-09-30 06:32 | disposition home or self-care (01) ==
LOC: MED 10:15
DX: K94.23 Gastrostomy malfunction (principal); Z79.899 Other long term (current) drug therapy
CPT/HCPCS: 43762; 74240; 82948; 96372; 99285; J1885